=== PATIENT | male | born 2000 | race Caucasian/White ===

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

== ENCOUNTER 2022-09-25 13:16 | Emergency (ER) | payer BC, MEDICAID ==
[~2022-09-25] VITALS: Ht 180.3 cm; Wt 71.0 kg
[2022-09-25 13:42] VITALS: BP 127/74; PULSE 125; RESP 18; TEMP 97.5; O2SAT 97
[2022-09-25] MEDS ORDERED: cephalexin 250mg capsule PO ONE (16:05)
[2022-09-25] MEDS ORDERED: bacitracin 15gm ointment TP ONE (16:05)
[2022-09-25] MEDS ORDERED: ibuprofen tablet 400 MG TABLET PO ONE (16:05)
[2022-09-25] MEDS ORDERED: IBUP-860 PO (16:08)
[2022-09-25] MEDS ORDERED: CEPH-585 PO (16:08)
== END 2022-09-25 16:50 | disposition home or self-care (01) ==
LOC: ER 13:17
DX: L03.115 Cellulitis of right lower limb (principal); M79.672 Pain in left foot; M79.671 Pain in right foot; L03.116 Cellulitis of left lower limb
CPT/HCPCS: 99284